=== PATIENT | female | born 1980 | race Caucasian/White ===

== ENCOUNTER 2018-04-19 10:20 | Emergency (ER) | payer OTHER ==
--- NOTE | 2018-04-19 10:43 | UC ---
General HPI - HPI Summary HPI Summary: 37 yo female presents c/o difficulty swallowing and left chest discomfort. Has had sx for several weeks, last 2-3 weeks worse. Night before last, she felt weakness generalized, and funny feeling on left hand and foot. No GI issues. No rash. Able to eat / drink ok, swallowing difficulty is not necessarily associated with eating. Has a hx thyroid d/o, has decreased her medication by appro 50% over the last month. LMP regular. - History of Current Complaint Stated Complaint: TROUBLE SWALLOWING Hx Obtained From: Patient - Allergy/Home Medications Allergies/Adverse Reactions: Allergies Allergy/AdvReac Type Severity Reaction Status Date / Time Penicillins Allergy Unknown Verified 04/19/18 10:49 Reaction Details Home Medications: Home Medications Levothyroxine TAB* [Synthroid TAB*] 75 mcg PO 0800 04/19/18 [History Confirmed 04/19/18] PMH/Surg Hx/FS Hx/Imm Hx Previously Healthy: Yes - see hpi - Surgical History Surgical History: None - Family History Known Family History: Positive: Hypertension - Social History Occupation: Employed Full-time Review of Systems Constitutional: Fatigue Skin: Negative Eyes: Negative ENT: Other - see hpi Respiratory: Other - see hpi Cardiovascular: Other - see hpi Gastrointestinal: Negative Genitourinary: Negative Motor: Negative Neurovascular: Negative Musculoskeletal: Negative Neurological: Negative Psychological: Negative Is Patient Immunocompromised?: No All Other Systems Reviewed And Are Negative: Yes Physical Exam Triage Information Reviewed: Yes Appearance: Well-Nourished - NAD Vital Signs Reviewed: Yes Eye Exam: Normal - grossly normal ENT Exam: Other - oropharynx benign. Trachea midline. No stridor. Tongue not elevated. Uvula midline. Neck supple. Tender mid trachea mild. No adenopathy appreciated. Neck exam: Other - see above Respiratory Exam: Other - tender subj left upper chest / shoulder but specifies that not as bad as it has been Respiratory: Positive: Lungs clear, Normal breath sounds, No respiratory distress, No accessory muscle use Cardiovascular Exam: Normal Cardiovascular: Positive: RRR, No Murmur, Pulses Normal, Brisk Capillary Refill Abdominal Exam: Normal Abdomen Description: Positive: Nontender Musculoskeletal Exam: Normal Musculoskeletal: Positive: Strength Intact Neurological Exam: Normal Neurological: Positive: Alert Psychological Exam: Normal - conversing easily and appropriately NAD Skin Exam: Normal - no visible or reported rash Course/Dx - Course Course Of Treatment: EKG SR at 71 bmp. No old available for comp. NSIVCD. NH 156 QTC 444. Diff dx potential is varied. Includes albeit not limited to endocrine, immunological, cardio pulmonary. Encourage ED evaluation / tx. Ms. Burt agrees, declines EMS, someone will drive her to the ED. Advised to maintain close f/u with PCP. [facility]SA po prior to [facility]. Questions as posed answered to the best of my abiltiy. - Differential Dx - Multi-Symptom Provider Diagnoses: Dysphagia. Chest discomfort. Hx thyroid disorder Discharge - Sign-Out/Discharge Documenting (check all that apply): Patient Departure All imaging exams completed and their final reports reviewed: No Studies - Discharge Plan Condition: Stable Disposition: HOME-RECOMMEND TO ED Patient Education Materials: Chest Pain (ED), Dysphagia (ED) Referrals: Renato Clemons DO [Primary Care Provider] - Additional Instructions: Please go to the Emergency Department. Call 911 if problems in the meantime. - Billing Disposition and Condition Condition: STABLE Disposition: Home-Recommend to ED
[2018-04-19 10:49] VITALS: BP 139/86
[2018-04-19] MEDS ORDERED: Aspirin 81 mg CHEW TAB* 81 MG TAB.CHEW PO ONE (11:08)
== END 2018-04-19 11:19 | disposition home health service (06) ==
LOC: UCEAST 10:20
DX: R13.10 Dysphagia, unspecified (principal); R07.89 Other chest pain; E07.9 Disorder of thyroid, unspecified; Z88.0 Allergy status to penicillin
CPT/HCPCS: 93005; 99212; A9270-GY; G0463

== ENCOUNTER 2018-04-19 11:46 | Emergency (ER) | payer OTHER ==
--- NOTE | 2018-04-19 12:56 | RAD ---
HISTORY: CHEST PAIN COMPARISONS: None VIEWS: 3: frontal dual-energy view of the chest FINDINGS: CARDIOMEDIASTINAL SILHOUETTE: The cardiomediastinal silhouette is normal. SELIN: The selin are normal. PLEURA: The costophrenic angles are sharp. No pleural abnormalities are noted. LUNG PARENCHYMA: The lungs are clear. ABDOMEN: The upper abdomen is clear. There is no subphrenic gas. BONES AND SOFT TISSUES: No bone or soft tissue abnormalities are noted. OTHER: None. IMPRESSION: NO ACTIVE CARDIOPULMONARY DISEASE.
[2018-04-19 14:24] LABS: ABS Basophils 0 10^3/ul (0-0.2); ABS Eosinophils 0 10^3/ul (0-0.6); ABS Lymphocytes 1.5 10^3/ul (1.0-4.8); ABS Monocytes 0.4 10^3/ul (0-0.8); ABS Neutrophils 5.1 10^3/ul (1.5-7.7); ABS Nucleated RBC 0 10^3/ul; Eosinophil % 0.4 % (0-6); Hematocrit 41 % (35-47); Hemoglobin 13.9 g/dl (12.0-16.0); Lymphocyte % 20.9 % (25-47); Mean Corpuscular HGB Conc 34 g/dl (31-36); Mean Corpuscular Hemoglobin 28 pg (27-31); Mean Corpuscular Volume 83 fL (80-97); Nucleated Red Blood Cells % 0.1; Platelet Count 208 10^3/ul (150-450); Red Blood Count 4.93 10^6/ul (4.00-5.40); Red Cell Distribution Width 14 % (10.5-15); White Blood Count 7.1 10^3/ul (3.5-10.8)
--- NOTE | 2018-04-19 14:28 | ED ---
Complex/Multi-Sys Presentation - HPI Summary HPI Summary: Pt is a 37 y/o female sent from the who presents to the ED c/o abnormal swallowing sensation. She states shes had this issue for a year and a half, and that eat food makes the issue worse. Pt states she has issues swallowing saliva but not liquids, and it feels as if she has a lump in her throat. Pt was evaluated at [facility] by her PCP Dr. Clemons and was found to have a thyroid nodule via US. She has since been on Levothyroxine, but states she feels better not on the medication. 2 nights ago, she felt palpitation in her left upper chest, and her legs felt weak. Pt thought her swallowing symptoms might have been allergies because her eyes and nose were also itchy. She also c/o 3/10 chest soreness and a mildly hoarse voice. Pt was given 324 mg ASA at the . [facility] ended on 04/04/18. She also states that ever since noticing a bump on the back of her head 3-4 years ago, shes had a stiff neck. FHx valvular heart disease ( grandmother), her parents are still alive and dont have any heart disease. Pt is a former smoker. Vital signs while in the room: HR 71 bpm, BP 131/93. Pt is a former smoker. Home Medications Medication Instructions Recorded Confirmed Type Levothyroxine TAB* [Synthroid TAB*] 75 mcg PO 0800 04/19/18 04/19/18 History - History Of Current Complaint Chief Complaint: EDGeneral Time Seen by Provider: 04/19/18 12:02 Hx Obtained From: Patient Onset/Duration: Gradual Onset, Lasting Weeks - 1.5 years, Still Present Timing: Constant Character: Unable To Describe - Lump in her throat Aggravating Factor(s): Eating food Associated Signs And Symptoms: Positive: Other - Eyes/Nose itchy, Mild hoarseness. Negative: Chest Pain - Allergies/Home Medications Allergies/Adverse Reactions: Allergies Allergy/AdvReac Type Severity Reaction Status Date / Time Penicillins Allergy Unknown Verified 04/19/18 10:49 Reaction Details PMH/Surg Hx/FS Hx/Imm Hx Endocrine/Hematology History: Reports: Hx Thyroid Disease - hypo Cardiovascular History: Denies: Hx Congestive Heart Failure - Surgical History Surgery Procedure, Year, and Place: Infectious Disease History: No Infectious Disease History: Denies: Traveled Outside the [place] in Last 30 Days - Family History Known Family History: Positive: Cardiac Disease - Valvular disease - grandmother - Social History Alcohol Use: None Hx Substance Use: No Substance Use Type: Reports: None Hx Tobacco Use: Yes Smoking Status (MU): Former Smoker Review of Systems Positive: Other - Pruritus Positive: Sore Throat - Lump in throat, difficulty swallowing saliva, Other - Nasal pruritus, hoarseness Positive: Palpitations, Other - Chest soreness Positive: Myalgia - Stiff neck Positive: Weakness - Leg weakness All Other Systems Reviewed And Are Negative: Yes Physical Exam - Summary Physical Exam Summary: Appearance: Well-appearing, moderate pain distress, well-nourished Skin: Warm, color reflects adequate perfusion, dry Head: Normal Head/Face inspection, atraumatic Eyes: Conjunctiva clear ENT: Normal inspection, TMs normal, pharynx normal, tonsils not enlarged Neck: Supple, no nodes, no JVD, thyroid palpable Respiratory: Lungs clear, normal breath sounds, no respiratory distress Cardio: RRR, No murmur, pulses normal, brisk capillary refill Abdomen: Soft, nontender Bowel sounds: Present Musculoskeletal: Strength Intact/ROM intact, no calf tenderness, no edema. Psychological: Normal Neuro: Alert, muscle tone normal, no focal deficit Triage Information Reviewed: Yes Vital Signs On Initial Exam: Initial Vitals Temp Pulse Resp BP Pulse Ox 99.6 F 69 18 140/76 98 04/19/18 11:49 04/19/18 11:49 04/19/18 11:49 04/19/18 11:49 04/19/18 11:49 Vital Signs Reviewed: Yes Diagnostics - Vital Signs Vital Signs Temp Pulse Resp BP Pulse Ox 04/19/18 13:35 98.7 F 75 18 127/80 99 04/19/18 11:49 99.6 F 69 18 140/76 98 - Laboratory Lab Results: Lab Results 04/19/18 Range/Units 14:13 WBC 7.1 (3.5-10.8) 10^3/ul RBC 4.93 (4.00-5.40) 10^6/ul Hgb 13.9 (12.0-16.0) g/dl Hct 41 (35-47) % MCV 83 (80-97) fL MCH 28 (27-31) pg MCHC 34 (31-36) g/dl RDW 14 (10.5-15) % Plt Count 208 (150-450) 10^3/ul MPV 10.0 (7.4-10.4) um3 Neut % (Auto) 72.1 (38-83) % Lymph % (Auto) 20.9 L (25-47) % [place] % (Auto) 6.0 (0-7) % Eos % (Auto) 0.4 (0-6) % Baso % (Auto) 0.6 (0-2) % Absolute Neuts (auto) 5.1 (1.5-7.7) 10^3/ul Absolute Lymphs (auto) 1.5 (1.0-4.8) 10^3/ul Absolute Monos (auto) 0.4 (0-0.8) 10^3/ul Absolute Eos (auto) 0 (0-0.6) 10^3/ul Absolute Basos (auto) 0 (0-0.2) 10^3/ul Absolute Nucleated RBC 0 10^3/ul Nucleated RBC % 0.1 Result Diagrams: 04/19/18 14:13 04/19/18 14:13 Lab Statement: Any lab studies that have been ordered have been reviewed, and results considered in the medical decision making process. - Radiology CXR Xray Interpretation: No Acute Changes - NO ACTIVE CARDIOPULMONARY DISEASE. ED physician reviewed radiology report. Radiology Interpretation Completed By: Radiologist - Ultrasound No standard instances Ultrasound Interpretation: Positive (See Comments) - Thyroid US: 1. DIFFUSELY HETEROGENEOUS THYROID. 2. INTERMEDIATE SUSPICION NODULES OF THE THYROID BILATERALLY, MEASURING UP TO 1 CM ON THE RIGHT AND 1 CM ON THE LEFT. THE [place] [employer] RECOMMENDS CONSIDERATION OF FINE-NEEDLE ASPIRATION OF INTERMEDIATE SUSPICION NODULES GREATER THAN OR EQUAL TO 1 CM IN SIZE. ED physician reviewed radiology report. Ultrasound Interpretation Completed By: Radiologist - EKG 12:11 Cardiac Rate: NL - 69 bpm EKG Rhythm: Sinus Rhythm ST Segment: Normal Ectopy: None EKG Interpretation: An EKG at 12:11 reveals nml AV/IV CT, nml QTc, and nml axis. Re-Evaluation - Re-Evaluation First Eval Re-Evaluation Time: 16:34 Change: Unchanged Comment: Went over US results, pt will be discharged. Vitals: HR 91 bpm, BP 114/ 80. Complex Multi-Symp Course/Dx Course Of Treatment: A CXR was negative. A thyroid US revealed DIFFUSELY HETEROGENEOUS THYROID. INTERMEDIATE SUSPICION NODULES OF THE THYROID BILATERALLY , MEASURING UP TO 1 CM ON THE RIGHT AND 1 CM ON THE LEFT. THE [place] [employer] RECOMMENDS CONSIDERATION OF FINE-NEEDLE ASPIRATION OF INTERMEDIATE SUSPICION NODULES GREATER THAN OR EQUAL TO 1 CM IN SIZE. An EKG revealed a rate of 69 bpm and nml AV/IV CT, nml QTc, and nml axis. - Diagnoses Provider Diagnoses: Thyroid nodule, Dysphagia, Hypokalemia Discharge - Sign-Out/Discharge Documenting (check all that apply): Patient Departure - Discharge - Discharge Plan Condition: Stable Disposition: HOME Patient Education Materials: Thyroid Nodules (ED), Dysphagia (ED) Referrals: [facility] [Outside] - 1 Day Renato Clemons DO [Primary Care Provider] - 2 Days [facility] [Outside] - 04/21/18 Additional Instructions: Return to the emergency department for new or worsening symptoms - Billing Disposition and Condition Condition: STABLE Disposition: Home - Attestation Statements Document Initiated by Scribe: Yes Documenting Scribe: Mellisa Mills Provider For Whom Scribe is Documenting (Include Credential): Gianna Villarreal MD Scribe Attestation: Mellisa Quiroga, scribed for Gianna Villarreal MD on 04/20/18 at 2140.
[2018-04-19 14:33] LABS: INR 0.92 (0.77-1.02)
[2018-04-19 14:53] LABS: EGFR Non-African American 81.6 (>60)
[2018-04-19] MEDS ORDERED: Iohexol 300* (CONTRAST) 10 ML SDV IV ONE (15:06)
[2018-04-19] MEDS ORDERED: Potassium Chloride LIQUID* 20 MEQ PACKET PO ONE (15:18)
--- NOTE | 2018-04-19 15:28 | RAD ---
HISTORY: dysphagia, on synthroid COMPARISONS: None TECHNIQUE: Multiple transverse and longitudinal ultrasound images were obtained of the thyroid using grayscale and color Doppler imaging. FINDINGS: ISTHMUS: The isthmus measures 0.3 cm in caliber. The isthmus is heterogeneous in echotexture. RIGHT: The right thyroid measures 4.1 x 1.7 x 1.1 cm, for a volume of 3.8 cc. The right thyroid is diffusely heterogeneous in echotexture. In the right upper thyroid , there is a heterogeneously hypoechoic nodule measuring 1 x 0.5 x 0.6 cm. There is no internal vascularity. There is minimal peripheral vascularity. . Based on the sonographic pattern, this is considered an intermediate suspicion nodule. In the right mid thyroid , there is a homogeneously hypoechoic nodule measuring 0.7 x 0.4 x 0.5 cm. This has smooth contours, without internal vascularity or microcalcification. . Based on the sonographic pattern, this is considered an intermediate suspicion nodule. LEFT: The left thyroid measures 4.4 x 1.3 x 1.5 cm, for a volume of 4.6 cc. The left thyroid is diffusely heterogeneous in echotexture. In the left lower thyroid , there is a heterogeneously hypoechoic nodule measuring 1 x 0.6 x 0.7 cm. There is minimal internal vascularity. . Based on the sonographic pattern, this is considered an intermediate suspicion nodule. LYMPH NODES: There is no local lymphadenopathy. VESSELS: The vessels are unremarkable. OTHER: None IMPRESSION: 1. DIFFUSELY HETEROGENEOUS THYROID. 2. INTERMEDIATE SUSPICION NODULES OF THE THYROID BILATERALLY, MEASURING UP TO 1 CM ON THE RIGHT AND 1 CM ON THE LEFT. THE [place] [employer] RECOMMENDS CONSIDERATION OF FINE-NEEDLE ASPIRATION OF INTERMEDIATE SUSPICION NODULES GREATER THAN OR EQUAL TO 1 CM IN SIZE. Based on the [place] [employer] 2015 guidelines, consider fine-needle aspiration thyroid nodule based on the following criteria: * High suspicion nodules: Recommend US-guided FNA if >= 1 cm. * Intermediate suspicion nodules: Recommend US-guided FNA if >= 1 cm. * Low suspicion nodules: Recommend US-guided a if >= 1.5 cm. * Very low suspicion nodules: Consider US-guided FNA if >= to 2 cm. Observation without fine-needle aspiration is also a reasonable option. * Benign nodules: No biopsy is recommended. Aspiration of the cyst may be considered for symptomatic or cosmetic drainage. Ultrasound-guided FNA is recommended for cervical lymph nodes that are sonographically suspicious for thyroid cancer. Atwood et al (2016) "2015 [place] [employer] Management Guidelines for Adult Patients with Thyroid Nodules and Differentiated Thyroid Cancer", Thyroid, 26:1, 1-133.
[2018-04-19 17:09] VITALS: BP 118/78
--- NOTE | 2018-04-20 21:42 | ED ---
Progress - Progress Note Progress Note: Pt calls and states that she cannot see her doctor for at least two weeks, and that the dysphagia. Re-Evaluation - Re-Evaluation First Eval Re-Evaluation Time: 16:34 Change: Unchanged Comment: Went over US results, pt will be discharged. Vitals: HR 91 bpm, BP 114/ 80. Course/Dx - Course Course Of Treatment: A CXR was negative. A thyroid US revealed DIFFUSELY HETEROGENEOUS THYROID. INTERMEDIATE SUSPICION NODULES OF THE THYROID BILATERALLY , MEASURING UP TO 1 CM ON THE RIGHT AND 1 CM ON THE LEFT. THE [place] [employer] RECOMMENDS CONSIDERATION OF FINE-NEEDLE ASPIRATION OF INTERMEDIATE SUSPICION NODULES GREATER THAN OR EQUAL TO 1 CM IN SIZE. An EKG revealed a rate of 69 bpm and nml AV/IV CT, nml QTc, and nml axis. - Diagnoses Provider Diagnoses: Thyroid nodule, Dysphagia, Hypokalemia Discharge - Discharge Plan Condition: Stable Disposition: HOME Patient Education Materials: Thyroid Nodules (ED), Dysphagia (ED) Referrals: [facility] [Outside] - 1 Day [facility] [Outside] - 04/21/18 Renato Clemons DO [Primary Care Provider] - 2 Days Additional Instructions: Return to the emergency department for new or worsening symptoms - Billing Disposition and Condition Condition: STABLE Disposition: Home
== END 2018-04-19 17:08 | disposition home or self-care (01) ==
LOC: ED 11:46
DX: E04.1 Nontoxic single thyroid nodule (principal); R13.10 Dysphagia, unspecified; E87.6 Hypokalemia; E03.9 Hypothyroidism, unspecified; R00.2 Palpitations; Z88.0 Allergy status to penicillin; Z87.891 Personal history of nicotine dependence
CPT/HCPCS: 36415; 71045; 76536; 80053; 82550; 82553; 83605; 83735; 83880; 84436; 84443; 84484; 84702; 85025; 85379; 85610; 85730; 93005; 99282; A9270-GY

== ENCOUNTER 2018-08-07 09:58 | Emergency (ER) | payer OTHER ==
[2018-08-07] MEDS ORDERED: Lidocaine 2% VISCOUS* 15 ML UDC PO ONE (10:16)
[2018-08-07] MEDS ORDERED: Sucralfate TAB* 1 GM PO ONE (10:16)
[2018-08-07] MEDS ORDERED: Famotidine TAB* 20 MG PO ONE (10:16)
--- NOTE | 2018-08-07 10:29 | ED ---
GI/ HPI - HPI Summary HPI Summary: .This patient is a 38 year old F presenting to [facility] accompanied by an older male with a chief complaint of epigastric pain that has been intermittent for the last few months. The patient rates the pain 7/10 in severity. Patient reports light headedness, acidic taste in her mouth, increased burping, and decreased appetite. She states she is only able to eat small amounts due to early satiety. She also c/o cotton mouth and swollen tongue. Patient denies n/ v/d, constipation, CP, and fever. She states she has not taken any OTC medication today. She states she just began a gluten free diet due to rosaline 's /celiac thyroiditis she has lost 12 lbs in the last two months due to the new diet. She states she has been tested for sjogren's disease. She denies family history of crohns or colitis. She also c/o a strange sensation in her left nare that has been occurring for the last month. - History of Current Complaint Chief Complaint: EDAbdPain Time Seen by Provider: 08/07/18 10:16 Stated Complaint: ABD PAIN/LIGHT HEADED Hx Obtained From: Patient Onset/Duration: Started Weeks Ago, Still Present Timing: Intermittent Severity: Moderate Current Severity: Moderate Pain Intensity: 7 Location of Pain: Epigastric Associated Signs and Symptoms: Positive: Negative - n/v/d, constipation, CP, fever, - Allergy/Home Medications Allergies/Adverse Reactions: Allergies Allergy/AdvReac Type Severity Reaction Status Date / Time Penicillins Allergy Unknown Verified 08/07/18 10:07 Reaction Details PMH/Surg Hx/FS Hx/Imm Hx Endocrine/Hematology History: Reports: Hx Thyroid Disease - hypo, one thyroid nodule Cardiovascular History: Denies: Hx Congestive Heart Failure Respiratory History: Reports: Hx Seasonal Allergies Psychiatric History: Denies: Hx Schizophrenia, Hx Bipolar Disorder, Hx Suicide Attempt - Surgical History Surgery Procedure, Year, and Place: Infectious Disease History: No Infectious Disease History: Denies: Traveled Outside the [place] in Last 30 Days - Family History Known Family History: Positive: Cardiac Disease - Valvular disease - grandmother - Social History Alcohol Use: None Hx Substance Use: No Substance Use Type: Reports: None Hx Tobacco Use: Yes Smoking Status (MU): Former Smoker Review of Systems Negative: Fever ENT: Other - cotton mouth and swollen tongue. Positive: Other - see HPI. Negative: Chest Pain Gastrointestinal: Negative - constipation, , Other - acidic taste in her mouth, increased burping, and decreased appetite due to early satiety. Positive: Abdominal Pain. Negative: Vomiting, Diarrhea, Nausea Neurological: Other - light headedness All Other Systems Reviewed And Are Negative: Yes Physical Exam - Summary Physical Exam Summary: Appearance: Well appearing, no pain distress Skin: warm, dry, reflects adequate perfusion Head/face: normal Eyes: EOMI, SHARYN ENT: mucous membranes moist, there are no oral lesions. There is a nasal polyp on the left side Neck: supple, non-tender Respiratory: CTA, breath sounds present Cardiovascular: RRR, pulses symmetrical Abdomen: non-tender, soft Bowel Sounds: present Musculoskeletal: normal, strength/ROM intact Neuro: normal, sensory motor intact, A&Ox3 Triage Information Reviewed: Yes Vital Signs On Initial Exam: Initial Vitals Temp Pulse Resp BP Pulse Ox 97.9 F 81 16 135/101 99 08/07/18 10:03 08/07/18 10:03 08/07/18 10:03 08/07/18 10:03 08/07/18 10:03 Vital Signs Reviewed: Yes Diagnostics - Vital Signs Vital Signs Temp Pulse Resp BP Pulse Ox 08/07/18 10:03 97.9 F 81 16 135/101 99 - Laboratory Result Diagrams: 08/07/18 10:52 08/07/18 10:52 Lab Statement: Any lab studies that have been ordered have been reviewed, and results considered in the medical decision making process. Re-Evaluation - Re-Evaluation First Eval Re-Evaluation Time: 11:45 Change: Improved GIGU Course/Dx - Course Course Of Treatment: Patient presents with a multitude of complaints the greatest of which is recurring epigastric discomfort that is burning in nature. This is associated with reflux type symptoms and acid taste in the mouth. This is treated here with improvement. She also has a nasal polyp seen in the left side of the naris. This is causing some discomfort. Referred to ENT for this. Referred to GI for endoscopy. Laboratories all within normal limits. Follow-up primary care as well. - Diagnoses Differential Diagnoses - Female: Other - Gastritis, peptic ulcer disease, pancreatitis, autoimmune disease to include granulomatous disease, sarcoid, gluten sensitivity Provider Diagnoses: Acute gastritis, Nasal polyp Discharge - Sign-Out/Discharge Documenting (check all that apply): Patient Departure - Discharge Plan Condition: Improved Disposition: HOME Prescriptions: Famotidine TAB* [Pepcid 20 MG TAB*] 20 mg PO BID #30 tab Omeprazole CAP* [Prilosec CAP* 20 MG] 20 mg PO BEDTIME #30 cap. Sucralfate [Carafate] 1 gm PO ACHS #40 tablet Patient Education Materials: Gastritis (ED) Referrals: Jose Franco DO [Doctor of Osteopathy] - Ramakrishna Kendrick MD [Medical Doctor] - Renato Clemons DO [Primary Care Provider] - Additional Instructions: Avoid spicy foods, alcohol, caffeine and anti-inflammatory medication such as ibuprofen. Call to schedule appointments with ENT and GI doctors. Return with increased pain, vomiting blood, worse, new symptoms or other concerns. - Billing Disposition and Condition Condition: IMPROVED Disposition: Home - Attestation Statements Document Initiated by Alberto: Yes Documenting Scribe: Lv Orantes Provider For Whom Alberto is Documenting (Include Credential): Dannie Lugo MD Scribe Attestation: Lv Quiroga scribed for Dannie Lugo MD on 08/07/18 at 1200. Scribe Documentation Reviewed: Yes Provider Attestation: The documentation as recorded by the Lv garcía accurately reflects the service I personally performed and the decisions made by , Dannie Lugo MD Status of Scribe Document: Viewed
[2018-08-07 11:14] LABS: Hematocrit 42 % (35-47); Hemoglobin 13.9 g/dl (12.0-16.0); Mean Corpuscular HGB Conc 33 g/dl (31-36); Mean Corpuscular Hemoglobin 28 pg (27-31); Mean Corpuscular Volume 84 fL (80-97); Mean Platelet Volume 10.6 fL (7.4-10.4); Platelet Count 202 10^3/ul (150-450); Red Blood Count 5.01 10^6/ul (4.00-5.40); Red Cell Distribution Width 14 % (10.5-15); White Blood Count 6.8 10^3/ul (3.5-10.8)
[2018-08-07 11:37] LABS: Albumin 4.5 g/dL (3.2-5.2); Albumin/Globulin Ratio 1.7 (1-3); BUN/Creatinine Ratio 13.9 (8-20); Calcium 9.8 mg/dL (8.6-10.3); EGFR Non-African American 82.3 (>60); Globulin 2.7 g/dL (2-4); Potassium 3.4 mmol/L (3.5-5.0); Total Bilirubin 1.1 mg/dL (0.2-1.0); Total Protein 7.2 g/dL (6.4-8.9)
[2018-08-07 11:58] LABS: ABS Basophils 0 10^3/ul (0-0.2); ABS Eosinophils 0 10^3/ul (0-0.6); ABS Monocytes 0.4 10^3/ul (0-0.8); ABS Neutrophils 5.4 10^3/ul (1.5-7.7); ABS Nucleated RBC 0 10^3/ul; Eosinophil % 0.2 %; Lymphocyte % 14.9 %; Nucleated Red Blood Cells % 0.1
[2018-08-07 12:15] VITALS: BP 123/78
== END 2018-08-07 12:14 | disposition home or self-care (01) ==
LOC: ED 09:58
DX: K29.70 Gastritis, unspecified, without bleeding (principal); J33.9 Nasal polyp, unspecified
CPT/HCPCS: 36415; 80053; 83690; 85025; 99283; A9270-GY

== ENCOUNTER 2018-08-10 12:17 | Emergency (ER) | payer OTHER ==
[2018-08-10 14:23] LABS: Hematocrit 43 % (35-47); Hemoglobin 14.6 g/dl (12.0-16.0); Mean Corpuscular HGB Conc 34 g/dl (31-36); Mean Corpuscular Hemoglobin 28 pg (27-31); Mean Corpuscular Volume 84 fL (80-97); Mean Platelet Volume 11.1 fL (7.4-10.4); Platelet Count 226 10^3/ul (150-450); Red Blood Count 5.15 10^6/ul (4.00-5.40); Red Cell Distribution Width 14 % (10.5-15); White Blood Count 8.7 10^3/ul (3.5-10.8)
[2018-08-10 14:24] LABS: ABS Basophils 0 10^3/ul (0-0.2); ABS Eosinophils 0 10^3/ul (0-0.6); ABS Lymphocytes 1.1 10^3/ul (1.0-4.8); ABS Monocytes 0.5 10^3/ul (0-0.8); ABS Nucleated RBC 0 10^3/ul; Eosinophil % 0.3 %; Lymphocyte % 12.8 %; Nucleated Red Blood Cells % 0
[2018-08-10] MEDS ORDERED: Pantoprazole IV* 40 MG IV ONE (14:31)
[2018-08-10 14:40] LABS: Albumin 5.1 g/dL (3.2-5.2); Albumin/Globulin Ratio 1.7 (1-3); BUN/Creatinine Ratio 9.2 (8-20); EGFR Non-African American 86.1 (>60); Potassium 3.4 mmol/L (3.5-5.0); Total Bilirubin 1.2 mg/dL (0.2-1.0); Total Protein 8.1 g/dL (6.4-8.9)
--- NOTE | 2018-08-10 14:55 | ED ---
Abdominal Pain/Female - HPI Summary HPI Summary: This patient is a 38 year old female presenting to [facility] with a chief complaint of abd pain since 3 days ago. Patient was seen in [facility] 3 days ago for the same symptoms and giving medication. The patient states that the medication helps mildly, but does not clear the symptoms. Today, patient states that she experiences pressure-like pain when she eats. She states that it feels like things get stuck right before the stomach. Patient then gets nauseous and eventually vomits up her food. The pain is rated 7/10 in severity. Symptoms aggravated by nothing. Symptoms alleviated by nothing. Patient additionally reports vomiting. - History of Current Complaint Chief Complaint: EDAbdPain Stated Complaint: ABD PAIN Time Seen by Provider: 08/10/18 14:13 Hx Obtained From: Patient Onset/Duration: Lasting Days, Still Present Timing: Constant Severity Currently: Moderate Pain Intensity: 7 Pain Scale Used: 0-10 Numeric Location: Diffuse Aggravating Factor(s): Nothing Alleviating Factor(s): Nothing Associated Signs and Symptoms: Positive: Nausea, Vomiting. Negative: Fever Allergies/Adverse Reactions: Allergies Allergy/AdvReac Type Severity Reaction Status Date / Time Penicillins Allergy Unknown Verified 08/10/18 12:52 Reaction Details PMH/Surg Hx/FS Hx/Imm Hx Previously Healthy: No Endocrine/Hematology History: Reports: Hx Thyroid Disease - hypo, one thyroid nodule Cardiovascular History: Denies: Hx Congestive Heart Failure Respiratory History: Reports: Hx Seasonal Allergies Psychiatric History: Denies: Hx Schizophrenia, Hx Bipolar Disorder, Hx Suicide Attempt - Surgical History Surgery Procedure, Year, and Place: Infectious Disease History: No Infectious Disease History: Denies: Traveled Outside the [place] in Last 30 Days - Family History Known Family History: Positive: Cardiac Disease - Valvular disease - grandmother - Social History Alcohol Use: None Hx Substance Use: No Substance Use Type: Reports: None Hx Tobacco Use: Yes Smoking Status (MU): Former Smoker Review of Systems Negative: Fever Positive: Abdominal Pain, Vomiting, Nausea All Other Systems Reviewed And Are Negative: Yes Physical Exam - Summary Physical Exam Summary: Appearance: Well appearing, no pain distress Skin: warm, dry, reflects adequate perfusion Head/face: normal Eyes: EOMI, SHARYN ENT: mucous membranes moist Neck: supple, non-tender Respiratory: CTA, breath sounds present Cardiovascular: RRR, pulses symmetrical Abdomen: non-tender, soft Bowel Sounds: present Musculoskeletal: normal, strength/ROM intact Neuro: normal, sensory motor intact, A&Ox3 Triage Information Reviewed: Yes Vital Signs On Initial Exam: Initial Vitals Temp Pulse Resp BP Pulse Ox 98.1 F 108 20 136/97 99 08/10/18 12:50 08/10/18 12:50 08/10/18 12:50 08/10/18 12:50 08/10/18 12:50 Vital Signs Reviewed: Yes Diagnostics - Vital Signs Vital Signs Temp Pulse Resp BP Pulse Ox 08/10/18 12:50 98.1 F 108 20 136/97 99 - Laboratory Lab Results: Lab Results 08/10/18 08/10/18 Range/Units 14:11 14:11 WBC 8.7 (3.5-10.8) 10^3/ul RBC 5.15 (4.00-5.40) 10^6/ul Hgb 14.6 (12.0-16.0) g/dl Hct 43 (35-47) % MCV 84 (80-97) fL MCH 28 (27-31) pg MCHC 34 (31-36) g/dl RDW 14 (10.5-15) % Plt Count 226 (150-450) 10^3/ul MPV 11.1 H (7.4-10.4) fL Neut % (Auto) 80.7 % Lymph % (Auto) 12.8 % Lucas % (Auto) 5.9 % Eos % (Auto) 0.3 % Baso % (Auto) 0.3 % Absolute Neuts (auto) 7.0 (1.5-7.7) 10^3/ul Absolute Lymphs (auto) 1.1 (1.0-4.8) 10^3/ul Absolute Monos (auto) 0.5 (0-0.8) 10^3/ul Absolute Eos (auto) 0 (0-0.6) 10^3/ul Absolute Basos (auto) 0 (0-0.2) 10^3/ul Absolute Nucleated RBC 0 10^3/ul Nucleated RBC % 0 Sodium 136 (135-145) mmol/L Potassium 3.4 L (3.5-5.0) mmol/L Chloride 101 (101-111) mmol/L Carbon Dioxide 23 (22-32) mmol/L Anion Gap 12 H (2-11) mmol/L BUN 7 (6-24) mg/dL Creatinine 0.76 (0.51-0.95) mg/dL Est GFR ( Amer) 104.2 (>60) Est GFR (Non-Af Amer) 86.1 (>60) BUN/Creatinine Ratio 9.2 (8-20) Glucose 86 (70-100) mg/dL Calcium 10.0 (8.6-10.3) mg/dL Total Bilirubin 1.20 H (0.2-1.0) mg/dL AST 15 (13-39) U/L ALT 11 (7-52) U/L Alkaline Phosphatase 48 (34-104) U/L Total Protein 8.1 (6.4-8.9) g/dL Albumin 5.1 (3.2-5.2) g/dL Globulin 3.0 (2-4) g/dL Albumin/Globulin Ratio 1.7 (1-3) Lipase 18 (11.0-82.0) U/L Result Diagrams: 08/10/18 14:11 08/10/18 14:11 Lab Statement: Any lab studies that have been ordered have been reviewed, and results considered in the medical decision making process. Abdominal Pain Fem Course/Dx - Course Course Of Treatment: Nurse's notes reviewed. Patient is well-known to me as I saw her the other day. She was started on PPI, Pepcid and Carafate. She has continued only the Carafate. She describes a feeling of food getting stuck around the area of the LES. She has mild epigastric discomfort. I was able to discuss the case with GI who has an opening on the endoscopy scheduled for tomorrow. The patient has accepted this. Plan is for outpatient endoscopy tomorrow. 80 mg of IV PPI given here. - Diagnoses Differential Diagnosis: Positive: Gall Bladder Disease, Irritable Bowel Syndrome , Pancreatitis, Peptic Ulcer Disease Provider Diagnoses: Esophagitis, GERD (gastroesophageal reflux disease) - Provider Notifications Discussed Care Of Patient With: Sanjana North - GI Time Discussed With Above Provider: 14:54 - We discussed patient care with Dr. North (GI) at 1454 who states that they will accept a followup tomorrow at 1100. Discharge - Sign-Out/Discharge Documenting (check all that apply): Patient Departure - Discharge Plan Condition: Improved Disposition: HOME Patient Education Materials: Esophagitis (ED) Referrals: Sanjana North MD [Medical Doctor] - Renato Clemons DO [Primary Care Provider] - Additional Instructions: GI lab will call you with instructions today. They estimate your appointment will be at 11 AM tomorrow. Liquid diet until then. Stop eating and drinking when they tell you too. Return if worse, fever, new symptoms or other concerns. - Billing Disposition and Condition Condition: IMPROVED Disposition: Home - Attestation Statements Document Initiated by Alberto: Yes Documenting Scribe: Adrian Gomez Provider For Whom Alberto is Documenting (Include Credential): Dannie Lugo MD Scribe Attestation: Adrian Quiroga scribed for Dannie Lugo MD on 08/10/18 at 1952. Scribe Documentation Reviewed: Yes Provider Attestation: The documentation as recorded by the Adrian garcía accurately reflects the service I personally performed and the decisions made by Dannie larry MD Status of Scribe Document: Viewed
[2018-08-10 14:57] VITALS: BP 119/92
== END 2018-08-10 14:49 | disposition home or self-care (01) ==
LOC: ED 12:17
DX: K20.9 Esophagitis, unspecified (principal); K21.9 Gastro-esophageal reflux disease without esophagitis; R10.9 Unspecified abdominal pain; R11.2 Nausea with vomiting, unspecified; Z88.0 Allergy status to penicillin; Z87.891 Personal history of nicotine dependence
CPT/HCPCS: 36415; 76705; 80053; 83690; 85025; 96374; 99282

== ENCOUNTER 2018-09-09 08:02 | Emergency (ER) | payer OTHER ==
[2018-09-09] MEDS ORDERED: NS 0.9% 1000 ML* 1,000 ML IV ONE (08:55)
[2018-09-09] MEDS: Lidocaine 2% VISCOUS* 15 ML UDC PO ONE ×2 (09:03→09:41)
[2018-09-09] MEDS: Al Hydrox/Mg Hydrox/Simet LIQ* 30 ML UDC PO ONE ×2 (09:03→09:13)
--- NOTE | 2018-09-09 09:10 | ED ---
Complex/Multi-Sys Presentation - HPI Summary HPI Summary: Pt. is a 38 y.o who presents to the ER for ongoing mouth and throat pain. Pt. states she was dx with oral thrush 08/31 and has been treated with nystatin and clotrimazole lozenge. Pt. states her symptoms are not improving. She also notes she is now having dysphagia and is having a difficulty swallowing liquids. Pt. states she was started on omeprazole a few months ago for epigastric pain which helps some. Past medical hx of hoshimoto's and is on synthroid. Pt. otherwise denies past medical hx. Sxs are moderate in severity. Swallowing makes sxs worse. Nothing makes sxs better. - History Of Current Complaint Chief Complaint: EDThroatPain Time Seen by Provider: 09/09/18 08:29 Hx Obtained From: Patient - Allergies/Home Medications Allergies/Adverse Reactions: Allergies Allergy/AdvReac Type Severity Reaction Status Date / Time Penicillins Allergy Unknown Verified 09/09/18 08:30 Reaction Details Home Medications: Home Medications Clotrimazole SALO* [Mycelex SALO*] 10 mg MT SEE INSTRUCTIONS 09/09/18 [ History Confirmed 09/09/18] PMH/Surg Hx/FS Hx/Imm Hx Previously Healthy: Yes Endocrine/Hematology History: Reports: Hx Thyroid Disease - hypo, one thyroid nodule Cardiovascular History: Denies: Hx Congestive Heart Failure Respiratory History: Reports: Hx Seasonal Allergies Psychiatric History: Denies: Hx Schizophrenia, Hx Bipolar Disorder, Hx Suicide Attempt - Surgical History Surgery Procedure, Year, and Place: Infectious Disease History: No Infectious Disease History: Denies: Traveled Outside the [place] in Last 30 Days - Family History Known Family History: Positive: Cardiac Disease - Valvular disease - grandmother - Social History Occupation: Works From/At Home Lives: With Family Alcohol Use: None Hx Substance Use: No Substance Use Type: Reports: None Hx Tobacco Use: Yes Smoking Status (MU): Former Smoker Review of Systems Constitutional: Negative Negative: Fever, Chills Eyes: Negative Positive: Sore Throat, Ear Ache Cardiovascular: Negative Respiratory: Negative Positive: Abdominal Pain. Negative: Vomiting, Diarrhea, Nausea Positive: dysuria Skin: Negative Neurological: Negative All Other Systems Reviewed And Are Negative: Yes Physical Exam Triage Information Reviewed: Yes Vital Signs On Initial Exam: Initial Vitals Temp Pulse Resp BP Pulse Ox 98.2 F 101 18 145/90 100 09/09/18 08:05 09/09/18 08:05 09/09/18 08:05 09/09/18 08:05 09/09/18 08:05 Vital Signs Reviewed: Yes Appearance: Positive: Well-Appearing - Pt. sitting up in bed in NAD. present. Skin: Positive: Warm, Dry Head/Face: Positive: Normal Head/Face Inspection Eyes: Positive: Normal, EOMI, SHARYN, Conjunctiva Clear ENT: Positive: TMs normal, Other - Oral mucosa is dry and lips are chapped. Faint white plagues on tongue. Oral pharynx is patent without lesions. Neck: Positive: Supple Respiratory/Lung Sounds: Positive: Clear to Auscultation, Breath Sounds Present Cardiovascular: Positive: Normal, RRR Abdomen Description: Positive: Other: - Abd. is soft with pain to LUQ and suprapubic region. No rebound tenderness or guarding. Neurological: Positive: Normal, CN Intact II-III Psychiatric: Positive: Affect/Mood Appropriate Diagnostics - Vital Signs Vital Signs Temp Pulse Resp BP Pulse Ox 09/09/18 08:05 98.2 F 101 18 145/90 100 - Laboratory Result Diagrams: 09/09/18 09:08 09/09/18 09:08 Lab Statement: Any lab studies that have been ordered have been reviewed, and results considered in the medical decision making process. Complex Multi-Symp Course/Dx Course Of Treatment: Pt presenting with co dysphagia. Pt. has been seen in ED numerous times for similar complaints pt. feels pain is different today. Pt. states she has not been able to swallow solids or liquid over the last 3 days. Pt. has a bottle with her she is spitting into. She also notes ongoing oral thrush dispite tx. She also notes worsening epigastric pain stating she cannot swallow her omeprazole. She is afebrile. Labs are unremarkable. GI cocktail ordered and pt. refused stating she was concerned she could not swallow. Case discussed with GI, Dr. Kareen Whelan who performed pt.'s endoscope last month which was unremarkable. Pt. examined by Dr. kareen whelan in ED. She offered pt. repeat scope to evaluate for canidial esophagitis which pt. declinied. She would like barrum swallow for further evaluation. She also notes concern for possible thyroiditis or nodules causing pt.'s sxs. VS normal, normal WBC and normal TSH. Discussed with Dr. Jay who does not recommend thyroid us in ED and feels pt. can get this done outpt. Swallowing study per radiology: The esophagus demonstrates a diverticulum which is likely a pulsion type at the level just. at the AP window below the aortic knob. The study is somewhat limited as the patient is. not very cooperative. IMPRESSION: There appears to be a pulsion type diverticula in the midportion of the. esophagus just at the level of the AP window. Limited study. Pt. re-examined by GI. She would like to switch pt. to fluconizole for thrush and increase PPI to BID. Pt. already has scheduled GI apt. for next week. Will return to ER sooner if sxs change or worsen. - Diagnoses Provider Diagnoses: Dysphagia Discharge - Sign-Out/Discharge Documenting (check all that apply): Patient Departure - Discharge Plan Condition: Good Disposition: HOME Prescriptions: Fluconazole [Fluconazole 200 mg tab] 200 mg PO DAILY #7 tablet Patient Education Materials: Dysphagia (ED) Referrals: Sanjana North MD [Medical Doctor] - Renato Clemons DO [Primary Care Provider] - Additional Instructions: Call your PCP today to schedule a close follow up appointment You may need a thyroid ultrasound outpatient if symptoms persist Follow up with GI as scheduled Take fluconazole as directed Return to ER if symptoms change or worsen - Billing Disposition and Condition Condition: GOOD Disposition: Home
[2018-09-09 09:23] LABS: Hematocrit 39 % (35-47); Hemoglobin 13.4 g/dl (12.0-16.0); Mean Corpuscular HGB Conc 34 g/dl (31-36); Mean Corpuscular Hemoglobin 29 pg (27-31); Mean Corpuscular Volume 84 fL (80-97); Mean Platelet Volume 11.1 fL (7.4-10.4); Platelet Count 173 10^3/ul (150-450); Red Blood Count 4.65 10^6/ul (4.00-5.40); Red Cell Distribution Width 15 % (10.5-15); White Blood Count 6.2 10^3/ul (3.5-10.8)
[2018-09-09 09:42] LABS: ALT 11 U/L (7-52); AST 15 U/L (13-39); Albumin 4.4 g/dL (3.2-5.2); Albumin/Globulin Ratio 1.5 (1-3); Alkaline Phosphatase 51 U/L (34-104); Anion Gap 13 mmol/L (2-11); Blood Urea Nitrogen 17 mg/dL (6-24); CO2 Carbon Dioxide 20 mmol/L (22-32); Chloride 106 mmol/L (101-111); EGFR African American 118.5 (>60); EGFR Non-African American 97.9 (>60); Glucose 87 mg/dL (70-100); Potassium 3.6 mmol/L (3.5-5.0); Sodium 139 mmol/L (135-145); Total Protein 7.4 g/dL (6.4-8.9)
[2018-09-09 09:48] LABS: HCG Pregnancy < 0.60 mIU/mL
[2018-09-09 10:15] LABS: Urine Appearance Cloudy; Urine Bilirubin Negative (Negative); Urine Blood Negative (Negative); Urine Color Yellow; Urine Glucose Negative (Negative); Urine Ketones 2+ (Negative); Urine Nitrite Negative (Negative); Urine Protein Negative (Negative); Urine Specific Gravity 1.026 (1.010-1.030); Urine Urobilinogen Negative (Negative)
[2018-09-09] MEDS ORDERED: Famotidine IV* 10 MG/ML 2 ML (20 mg) IV SLOW PU ONE (10:26)
[2018-09-09 10:53] LABS: ABS Basophils 0 10^3/ul (0-0.2); ABS Eosinophils 0 10^3/ul (0-0.6); ABS Lymphocytes 0.7 10^3/ul (1.0-4.8); ABS Monocytes 0.4 10^3/ul (0-0.8); ABS Neutrophils 5.1 10^3/ul (1.5-7.7); ABS Nucleated RBC 0 10^3/ul; Eosinophil % 0.2 %; Lymphocyte % 11.3 %; Nucleated Red Blood Cells % 0
[2018-09-09 16:29] VITALS: BP 116/70
--- NOTE | 2018-09-09 19:13 | CONS ---
GASTROENTEROLOGY CONSULTATION REPORT: DATE OF CONSULT: 09/09/18 REQUESTING CONSULT: ER physician. LOCATION: The patient was seen in the ER. REASON FOR CONSULT: Difficulty swallowing. HISTORY OF PRESENT ILLNESS: Ms. 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 Ms. Burt has been to the ER on several occasions with complaints of dysphagia. I performed an EGD on 08/11/18 for these complaints. The EGD demonstrated mild trachealization in the proximal mid esophagus. It was an otherwise unremarkable exam. Biopsies did not demonstrate eosinophilic esophagitis. CLOtest was negative for H. pylori. Duodenal biopsies were negative for celiac disease. Ms. Burt was placed on omeprazole 20 mg daily. She is scheduled for follow-up in GI Clinic early next week. In the past two weeks, she apparently has been diagnosed with oral candidiasis. It sounds as if she was initially treated with nystatin swish and swallow without much improvement. She was then more recently started on clotrimazole lozenges. She stated that her symptoms are not improving. She feels that there is some swelling or abnormality in her upper esophagus such that she has some discomfort when swallowing. She feels as if food and liquids get stuck in the upper esophagus and lead to her gasping for air. She eventually burps, which seems to help relieve the uncomfortable sensation. She has complained of some abdominal discomfort in the epigastrium as well as some nausea, although this seems to be more significant since she started the antifungal medication(s) . She complains of early satiety chronically. She has lost 15 pounds or so in the last few months. She wonders if this may be due to changing her diet to a gluten free diet as this was recommended after thyroid biopsy performed. PAST MEDICAL HISTORY: 1. Cabrera's thyroiditis PAST SURGICAL HISTORY: . MEDICATIONS: 1. Clotrimazole. 2. Omeprazole 20 mg daily. 3. Levothyroxine. FAMILY HISTORY: No known GI or liver disease in family. SOCIAL HISTORY: The patient denies any smoking, drugs, or alcohol use. REVIEW OF SYSTEMS: Negative except as above 14 systems reviewed. PHYSICAL EXAM: Vital Signs: Notable for afebrile, normal heart rate in the 90s, blood pressure 145/90, 100% on room air. General: Mildly anxious appearing woman sitting upright in bed. HEENT: The mucous membranes are moist. White coating on tongue. Cardiovascular: Regular rate and rhythm on monitor. Pulm: Breathing comfortably. Abdomen: Mild epigastric tenderness. No guarding or rebound tenderness. Skin: No jaundice. DIAGNOSTIC STUDIES/LAB DATA: Labs reviewed. CBC normal. INR normal. Comprehensive panel notable for a bilirubin of 1.9. Of note, she has had mildly elevated bilirubins in July of 1.1 to 1.2. Lipase was not elevated. TSH within normal range. Imaging: Abdominal ultrasound was reviewed from late July, which was negative with a normal CBD and normal gallbladder. IMPRESSION AND RECOMMENDATIONS: Ms. Burt is a 38-year-old woman with a history of Cabrera's and upper GI symptoms with recent negative EGD, who presents with odynophagia and dysphagia complaints. Ms. Burt underwent an EGD last month for complaints of epigastric pain and dysphagia. The EGD and biopsies were unremarkable. Patient now presents complaining of oral candidiasis despite nystatin and clotrimazole and odynophagia/dysphagia. She points to her sternal notch and upper esophagus as the area where she feels things slow down. I reviewed with the patient that her recent workup did not demonstrate any explanation for her more long-standing complaints of dysphagia. It is possible that her symptoms now may represent esophageal candidiasis given her oral findings. It is a bit unexpected that she would have candidiasis without clear reason, although she certainly does appear to have white coating on her tongue suggestive of thrush. I have recommended a barium swallow to ensure that there is no stricture or narrowing identified. I also recommend that the patient have a thyroid ultrasound performed either in the ER or as an outpatient given her thyroid history and the location of her complaints. UPDATE: Esophagram performed in the ER. Results reviewed.: There is a possible diverticula in the mid portion of the esophagus. No narrowing or strictures noted. No ulceration or esophagitis noted. I do not think that the diverticula would explain her acute symptoms. I reviewed with the patient that her imaging study reveals that her esophagus is patent. I would recommend empiric treatment of esophageal candidiasis with transition from clotrimazole to fluconazole 200 mg daily. I will see her in clinic on Wednesday. If she has no improvement in her symptoms, then we could discuss repeating an EGD to evaluate for esophageal candidiasis to be followed by manometry if testing is negative. I have also asked that she speak with her primary care doctor on Wednesday about possible thyroid imaging and to ensure no other work-up needed given candidiasis in an immunocompetent patient (?HIV testing). I also have asked the patient to increase her omeprazole to 20 mg twice a day. The patient is in agreement with this plan. Thank you very much for this consult. Please let me know if there are any additional questions. [id number]/[facility] #: [id number]
== END 2018-09-09 16:31 | disposition home or self-care (01) ==
LOC: ED 08:02
DX: R13.10 Dysphagia, unspecified (principal); Z87.891 Personal history of nicotine dependence; E06.3 Autoimmune thyroiditis; E03.9 Hypothyroidism, unspecified; B37.9 Candidiasis, unspecified
CPT/HCPCS: 36415; 74220; 80053; 81003; 83690; 84443; 84702; 85025; 96361; 96374; 99284; A9270-GY